=== PATIENT | male | born 1985 | race African-American/Black ===

== ENCOUNTER 2017-07-03 19:25 | Emergency (ER) | payer SELFPAY ==
--- NOTE | 2017-07-03 19:39 | ER Document Report ---
ED Syncope and Near Syncope - General Mode of Arrival: Ambulatory Information source: Patient TRAVEL OUTSIDE OF THE [place] IN LAST 30 DAYS: No <FOUZIA COLLINS - Last Filed: 07/03/17 22:59> <YUMIKO RHOADES - Last Filed: 07/04/17 04:59> - General Stated Complaint: POSSIBLE SYNCOPE Time Seen by Provider: 07/03/17 19:34 Notes: Patient is a 31 year old male that presents to the emergency department today with complaints of a syncopal episode that occurred just prior to arrival. Patient states that he was walking in the store and that is the last thing he remembers. Patient has a laceration to his forehead. Patient states he last got a tetanus shot in 2014. Patient has had diarrhea recently and thinks he could be dehydrated. Patient denies any syncopal episodes in the past. (FOUZIA COLLINS) - Related Data Allergies/Adverse Reactions: seafood Allergy (Uncoded 05/18/14 23:56) Past Medical History - General Information source: Patient - Social History Smoking Status: Never Smoker Cigarette use (# per day): No Frequency of alcohol use: Social Drug Abuse: None Lives with: Family Family History: Reviewed & Not Pertinent - Medical History Medical History: Negative Surgical Hx: Negative - Immunizations Hx Diphtheria, Pertussis, Tetanus Vaccination: Yes <FOUZIA COLLINS - Last Filed: 07/03/17 22:59> Review of Systems - Review of Systems Constitutional: No symptoms reported EENT: See HPI, Other - head laceration Cardiovascular: See HPI, Syncope Respiratory: No symptoms reported Gastrointestinal: No symptoms reported Genitourinary: No symptoms reported Male Genitourinary: No symptoms reported Musculoskeletal: No symptoms reported Skin: No symptoms reported Hematologic/Lymphatic: No symptoms reported Neurological/Psychological: See HPI, Headaches -: Yes All other systems reviewed and negative <FOUZIA COLLINS - Last Filed: 07/03/17 22:59> Physical Exam <FOUZIA COLLINS - Last Filed: 07/03/17 22:59> <YUMIKO RHOADES - Last Filed: 07/04/17 04:59> - Vital signs Vitals: Pulse Ox 100 07/03/17 19:43 - Notes Notes: Physical Exam: General: Alert, appears well. HEENT: Normocephalic. Hematoma over right forehead with 1 cm central laceration , bleeding controlled. PERRL. Extraocular movements intact. Oropharynx clear. Neck: Supple. Non-tender. Respiratory: No respiratory distress. Clear and equal breath sounds bilaterally. Cardiovascular: Regular rate and rhythm. Abdominal: Normal Inspection. Non-tender. No distension. Normal Bowel Sounds. Back: Non-tender. No deformity or step off. Extremities: Moves all four extremities. Upper extremities: Normal inspection. Normal ROM. Lower extremities: Normal inspection. No edema. Normal ROM. Neurological: Normal cognition. AAOx4. Normal speech. Psychological: Normal affect. Normal Mood. Skin: Warm. Dry. Normal color. (FOUZIA COLLINS) Course - Laboratory Result Diagrams: 07/03/17 19:45 07/03/17 19:45 <FOUZIA COLLINS - Last Filed: 07/03/17 22:59> - Laboratory Result Diagrams: 07/03/17 19:45 07/03/17 19:45 - Diagnostic Test Radiology reviewed: Reports reviewed <YUMIKO RHOADES - Last Filed: 07/04/17 04:59> - Re-evaluation Re-evalutation: 07/03/17 21:55 Pt still complaining of headache (FOUZIA COLLINS) Patient is a 31-year-old male who had an episode of syncope and hit his head. He is a very small laceration and did not want repair with sutures. Imaging with no acute findings. Blood work with no acute findings. Patient states that he has had a lot of diarrhea lately. Feels better after fluids. He is not orthostatic. He feels well and would like to go home. No acute findings on EKG. Patient is instructed to return immediately if he has any further episodes of syncope or has any other concerns. Family present for discussion. Stable for discharge. Understands and agrees with plan. Grateful for care. (YUMIKO RHOADES) - Vital Signs Vital signs: Temp Pulse Resp BP Pulse Ox 97.8 F 66 17 116/72 97 07/03/17 19:59 07/03/17 19:59 07/03/17 23:51 07/03/17 23:51 07/03/17 23:31 - Laboratory Laboratory results interpreted by me: 07/03/17 07/03/17 19:45 19:45 RBC 4.17 L Glucose 114 H ALT 18 L Total Protein 8.4 H Procedures - Laceration/Wound Repair Right Face Wound length (cm): 1 Wound's Depth, Shape: Superficial, Linear Irrigated w/ Saline (mLs): 500 Wound Repaired With: Steri-strips, Dermabond Layer Closure?: No Post-procedure NV exam normal: Yes Complications: No <YUMIKO RHOADES - Last Filed: 07/04/17 04:59> Discharge <FOUZIA COLLINS - Last Filed: 07/03/17 22:59> <YUMIKO RHOADES - Last Filed: 07/04/17 04:59> - Discharge Clinical Impression: Laceration Syncope Qualifiers: Syncope type: unspecified Qualified Code(s): R55 - Syncope and collapse Head injury Qualifiers: Encounter type: initial encounter Qualified Code(s): S09.90XA - Unspecified injury of head, initial encounter Cervical strain, acute Qualifiers: Encounter type: initial encounter Qualified Code(s): S16.1XXA - Strain of muscle, fascia and tendon at neck level, initial encounter Condition: Stable Disposition: HOME, SELF-CARE Instructions: Head Injury Precautions ([facility]), Neck Injury (Cervical Strain) ([facility] ), Syncopal Episode ([facility]) Prescriptions: Ondansetron [Zofran Odt 4 mg Tablet] 1 tab PO Q6HP PRN #15 tab.rapdis PRN Reason: For Nausea/Vomiting Metoclopramide HCl [Reglan 10 mg Tablet] 1 tab PO TIDP PRN #25 tablet PRN Reason: Forms: Return to Work Scribe Attestation: 07/04/17 04:59 I personally performed the services described in the documentation, reviewed and edited the documentation which was dictated to the scribe in my presence, and it accurately records my words and actions. (YUMIKO RHOADES) Scribe Documentation - Scribe Written by Borisibe:: Albert Acevedo, 07/03/2017 [id number] acting as scribe for :: Avelino <FOUZIA COLLINS - Last Filed: 07/03/17 22:59>
[2017-07-03] MEDS ORDERED: NORMAL SALINE 1000 ML 1,000 ML IV ONE (19:43)
[2017-07-03 19:58] LABS: ABSOLUTE EOSINOPHILS # (AUTO) 0.2 10^3/uL (0.0-0.6); ABSOLUTE LYMPHOCYTES (AUTO) 2.5 10^3/uL (0.5-4.7); ABSOLUTE MONOCYTES (AUTO) 0.7 10^3/uL (0.1-1.4); ABSOLUTE NEUT (AUTO) 5.9 10^3/uL (1.7-8.2); BASOPHILS % (AUTO) 0.5 % (0-2); EOSINOPHILS % (AUTO) 1.7 % (0-6); HEMATOCRIT 40.1 % (37.9-51.0); HEMOGLOBIN 13.7 g/dL (13.5-17.0); LYMPHOCYTES % (AUTO) 27.4 % (13-45); MEAN CORPUSCULAR HEMOGLOBIN 32.9 pg (27.0-33.4); MEAN CORPUSCULAR HGB CONC 34.2 g/dL (32.0-36.0); MEAN CORPUSCULAR VOLUME 96 fl (80-97); MONOCYTES % (AUTO) 7.3 % (3-13); PLATELET COUNT 266 10^3/uL (150-450); RED BLOOD COUNT 4.17 10^6/uL (4.35-5.55); RED CELL DISTRIBUTION WIDTH 13.6 % (11.5-14.0); SEGMENTED NEUTROPHILS % (AUTO) 63.1 % (42-78); TOTAL CELLS COUNTED % (AUTO) 100 %; WHITE BLOOD COUNT 9.3 10^3/uL (4.0-10.5)
[2017-07-03 20:05] LABS: INTERNATIONAL RATION (INR) 0.96; PROTHROMBIN TIME 13.5 SEC (11.4-15.4)
--- NOTE | 2017-07-03 20:05 | RADIOLOGY REPORT (SQ) ---
EXAM DESCRIPTION: CHEST SINGLE VIEW COMPLETED DATE/TIME: 07/03/2017 7:57 pm REASON FOR STUDY: syncope COMPARISON: None. EXAM PARAMETERS: NUMBER OF VIEWS: One view. TECHNIQUE: Single frontal radiographic view of the chest acquired. RADIATION DOSE: NA LIMITATIONS: None. FINDINGS: LUNGS AND PLEURA: No opacities, masses or pneumothorax. No pleural effusion. MEDIASTINUM AND HILAR STRUCTURES: No masses. Contour normal. HEART AND VASCULAR STRUCTURES: Heart normal in size. Normal vasculature. BONES: No acute findings. HARDWARE: None in the chest. OTHER: No other significant finding. IMPRESSION: NO ACUTE RADIOGRAPHIC FINDING IN THE CHEST. TECHNICAL DOCUMENTATION: JOB ID: [id number] [employer]- All Rights Reserved
[2017-07-03 20:15] LABS: ALANINE AMINOTRANSFERASE 18 U/L (21-72); ALBUMIN 4.9 g/dL (3.5-5.0); ALKALINE PHOSPHATASE 112 U/L (38-126); ANION GAP 12 (5-19); ASPARTATE AMINO TRANSFERASE 28 U/L (17-59); BILIRUBIN,DIRECT 0.1 mg/dL (0.0-0.4); BILIRUBIN,TOTAL 0.8 mg/dL (0.2-1.3); BLOOD UREA NITROGEN 12 mg/dL (7-20); CALCIUM 10.1 mg/dL (8.4-10.2); CARBON DIOXIDE 29 mmol/L (22-30); CHLORIDE 100 mmol/L (98-107); CREATINE KINASE 161 U/L (55-170); GLUCOSE 114 mg/dL (75-110); POTASSIUM 3.8 mmol/L (3.6-5.0); SODIUM 140.9 mmol/L (137-145); TOTAL PROTEIN 8.4 g/dL (6.3-8.2)
[2017-07-03 20:29] LABS: CREATINE KINASE MB < 0.22 ng/mL (<4.55); TROPONIN I < 0.012 ng/mL
[2017-07-03] MEDS ORDERED: ACETAMINOPHEN 325 MG TABLET PO ONE (20:41)
[2017-07-03] MEDS ORDERED: ONDANSETRON HCL INJ/PF 4 MG/2 ML SDV IV ONE (20:41)
--- NOTE | 2017-07-03 21:25 | RADIOLOGY REPORT (SQ) ---
EXAM DESCRIPTION: CT HEAD WITHOUT COMPLETED DATE/TIME: 07/03/2017 9:15 pm REASON FOR STUDY: fall, head injury, NERI COMPARISON: None. TECHNIQUE: Axial images acquired through the brain without intravenous contrast. Images reviewed wi th bone, brain and subdural windows. Images stored on PACS. All CT scanners at this facility use dose modulation, iterative reconstruction, and/or weight based d osing when appropriate to reduce radiation dose to as low as reasonably achievable (ALARA). [facility]: Dose Right [facility]: CareDose [facility]: Dose Right [facility]: Teradose 4D [facility]: Smart [employer] RADIATION DOSE: CT Rad equipment meets quality standard of care and radiation dose reduction techniq ues were employed. CTDIvol: 64.6 mGy. DLP: 1163 mGy-cm. mGy. LIMITATIONS: None. FINDINGS: VENTRICLES: Normal size and contour. CEREBRUM: No masses. No hemorrhage. No midline shift. No evidence for acute infarction. Normal gra y/white matter differentiation. No areas of low density in the white matter. CEREBELLUM: No masses. No hemorrhage. No alteration of density. No evidence for acute infarction. EXTRAAXIAL SPACES: No fluid collections. No masses. ORBITS AND GLOBE: No intra- or extraconal masses. Normal contour of globe without masses. CALVARIUM: No fracture. PARANASAL SINUSES: No fluid or mucosal thickening. SOFT TISSUES: Soft tissue swelling right side of the forehead. OTHER: No other significant finding. IMPRESSION: NORMAL BRAIN CT WITHOUT CONTRAST. EVIDENCE OF ACUTE STROKE: NO. COMMENT: Quality ID # [id number]: Final reports with documentation of one or more dose reduction techniques (e.g., Automated exposure control, adjustment of the mA and/or kV according to patient size, use of iterative reconstruction technique) TECHNICAL DOCUMENTATION: JOB ID: [id number]- All Rights Reserved
[2017-07-03] MEDS ORDERED: LIDOCAINE 1% INJ-PF (10 MG/ML) 30 ML SDV INJ ONE (21:47)
[2017-07-03] MEDS ORDERED: PROCHLORPERAZINE EDISYLATE INJ 10 MG/2 ML VIAL IV ONE (21:52)
[2017-07-03] MEDS ORDERED: DIPHENHYDRAMINE HCL 50 MG/ML VIAL IV ONE (21:52)
[2017-07-03] MEDS ORDERED: ONDANSETRON ODT 4 MG TAB (6 TAB/ER DISP) PO PRN (23:37)
[2017-07-03 23:53] VITALS: BP 116/72
--- NOTE | 2017-07-04 08:00 | EKG REPORT ---
SEVERITY:- NORMAL ECG - SINUS RHYTHM : Confirmed by: Pedro Moore MD 04-Jul-2017 07:59:46
== END 2017-07-04 00:07 | disposition home or self-care (01) ==
LOC: ER 19:25
PROC: 0HQ1XZZ Repair Face Skin, External Approach (ICD-10-PCS; principal; 2017-07-03)
DX: S16.1XXA Strain of muscle, fascia and tendon at neck level, initial encounter (principal); S09.90XA Unspecified injury of head, initial encounter; S01.81XA Laceration without foreign body of other part of head, initial encounter; R55 Syncope and collapse; R19.7 Diarrhea, unspecified; W19.XXXA Unspecified fall, initial encounter
CPT/HCPCS: 93005; 99285; 96361; 96374; 96375; 36415; 82553; 82550; 85025; 85610; 80053; 84484; 71045; 70450; 93010; 12011; J1200; J3490; J0780; J2405; J7030

== ENCOUNTER 2017-11-04 15:13 | Emergency (ER) | payer SELFPAY ==
[2017-11-04] MEDS ORDERED: NORMAL SALINE 1000 ML 1,000 ML IV ONE ×2 (15:27→19:36)
[2017-11-04] MEDS ORDERED: ONDANSETRON 4 MG TAB.RAPDIS PO ONE (15:28)
--- NOTE | 2017-11-04 15:35 | ER Document Report ---
ED Medical Screen (RME) - General Chief Complaint: Near Syncope Stated Complaint: SYNCOPE Time Seen by Provider: 11/04/17 15:21 Notes: RAPID MEDICAL EVALUATION DISCLOSURE I have seen this patient as part of a Rapid Medical Evaluation and, if applicable, placed any initially appropriate orders. The patient will be seen and fully evaluated, including a full history and physical exam, by a provider ( in Main ED or Fast Track) when a room becomes available. 31M here w c/o lightheadedness nausea diaphoresis CPs that started several hours ago while he was at work. States he went to [employer] to eat something but the symptoms did not improve. He has been drinking plenty of fluids. He has been urinating per usual. He has not had any recent medication changes. This has happened 3 times now and he has not yet seen a doctor about this. EXAM CTAB RRR TRAVEL OUTSIDE OF THE [place] IN LAST 30 DAYS: No - Related Data Allergies/Adverse Reactions: seafood Allergy (Uncoded 05/18/14 23:56) Past Medical History - Social History Chew tobacco use (# tins/day): No Frequency of alcohol use: None Drug Abuse: None Renal/ Medical History: Denies: Hx Peritoneal Dialysis - Immunizations Hx Diphtheria, Pertussis, Tetanus Vaccination: Yes Physical Exam - Vital signs Vitals: Temp Pulse Resp BP Pulse Ox 97.9 F 81 18 123/79 100 11/04/17 15:19 11/04/17 15:19 11/04/17 15:19 11/04/17 15:19 11/04/17 15:19 Course - Vital Signs Vital signs: Temp Pulse Resp BP Pulse Ox 97.9 F 81 18 123/79 100 11/04/17 15:19 11/04/17 15:19 11/04/17 15:19 11/04/17 15:19 11/04/17 15:19
[2017-11-04 15:54] LABS: ABSOLUTE LYMPHOCYTES (AUTO) 1.6 10^3/uL (0.5-4.7); ABSOLUTE MONOCYTES (AUTO) 0.4 10^3/uL (0.1-1.4); ABSOLUTE NEUT (AUTO) 5.8 10^3/uL (1.7-8.2); BASOPHILS % (AUTO) 0.3 % (0-2); EOSINOPHILS % (AUTO) 0.4 % (0-6); HEMATOCRIT 40.8 % (37.9-51.0); HEMOGLOBIN 14.1 g/dL (13.5-17.0); LYMPHOCYTES % (AUTO) 20.6 % (13-45); MEAN CORPUSCULAR HEMOGLOBIN 32.7 pg (27.0-33.4); MEAN CORPUSCULAR HGB CONC 34.6 g/dL (32.0-36.0); MEAN CORPUSCULAR VOLUME 95 fl (80-97); MONOCYTES % (AUTO) 4.7 % (3-13); PLATELET COUNT 267 10^3/uL (150-450); RED BLOOD COUNT 4.31 10^6/uL (4.35-5.55); RED CELL DISTRIBUTION WIDTH 13.5 % (11.5-14.0); TOTAL CELLS COUNTED % (AUTO) 100 %; WHITE BLOOD COUNT 7.8 10^3/uL (4.0-10.5)
[2017-11-04 16:16] LABS: ALANINE AMINOTRANSFERASE 31 U/L (21-72); ALBUMIN 4.3 g/dL (3.5-5.0); ALKALINE PHOSPHATASE 113 U/L (38-126); ANION GAP 9 (5-19); ASPARTATE AMINO TRANSFERASE 37 U/L (17-59); BILIRUBIN,DIRECT 0.3 mg/dL (0.0-0.4); BILIRUBIN,TOTAL 0.3 mg/dL (0.2-1.3); BLOOD UREA NITROGEN 11 mg/dL (7-20); CALCIUM 10.1 mg/dL (8.4-10.2); CARBON DIOXIDE 28 mmol/L (22-30); CHLORIDE 104 mmol/L (98-107); GLUCOSE 94 mg/dL (75-110); PHOSPHORUS 2.7 mg/dL (2.5-4.5); POTASSIUM 4.1 mmol/L (3.6-5.0); SODIUM 141.3 mmol/L (137-145); TOTAL PROTEIN 7.3 g/dL (6.3-8.2)
--- NOTE | 2017-11-04 16:18 | RADIOLOGY REPORT (SQ) ---
EXAM DESCRIPTION: CHEST 2 VIEWS COMPLETED DATE/TIME: 11/04/2017 4:08 pm REASON FOR STUDY: CP lightheaded COMPARISON: 07/03/2017. EXAM PARAMETERS: NUMBER OF VIEWS: two views TECHNIQUE: Digital Frontal and Lateral radiographic views of the chest acquired. RADIATION DOSE: NA LIMITATIONS: none FINDINGS: LUNGS AND PLEURA: No opacities, masses or pneumothorax. No pleural effusion. MEDIASTINUM AND HILAR STRUCTURES: No masses or contour abnormalities. HEART AND VASCULAR STRUCTURES: Heart normal size. No evidence for failure. BONES: No acute findings. HARDWARE: None in the chest. OTHER: No other significant finding. IMPRESSION: NO ACUTE RADIOGRAPHIC FINDING IN THE CHEST. TECHNICAL DOCUMENTATION: JOB ID: [id number] [employer]- All Rights Reserved Reading location - IP/workstation name: [email or web address]
[2017-11-04 17:15] LABS: URINE AMPHETAMINES SCREEN NEGATIVE; URINE BARBITURATES SCREEN NEGATIVE; URINE BENZODIAZEPINES SCREEN NEGATIVE; URINE COCAINE SCREEN NEGATIVE; URINE MARIJUANA (THC) SCREEN UNCONFIRMED POSITIVE; URINE METHADONE SCREEN NEGATIVE; URINE PHENCYCLIDINE SCREEN NEGATIVE
--- NOTE | 2017-11-04 18:53 | ER Document Report ---
ED General - General Mode of Arrival: Ambulatory Information source: Patient TRAVEL OUTSIDE OF THE [place] IN LAST 30 DAYS: No <SYLVIA BARROSO - Last Filed: 11/04/17 22:09> <YUMIKO RHOADES - Last Filed: 11/05/17 02:58> - General Chief Complaint: Near Syncope Stated Complaint: SYNCOPE Time Seen by Provider: 11/04/17 15:21 Notes: 31 y.o male presents to the ED for near syncopal episode. Pt has been seen here in the past for the same sx when he did lose consciousness and hit the front of his head. Pt denies loss of consciousness today but states that he had the same pre-syncopal symptoms where he got lightheaded, CP, heart racing and diaphoretic. He states that he has been experiencing this 3-4 times a month and although he is feeling better since receiving fluids he does not think this is only due to dehydration for he states that he regularly drinks plenty of fluids throughout the day. Pt does not have a PCP. (SYLVIA BARROSO) - Related Data Allergies/Adverse Reactions: seafood Allergy (Uncoded 05/18/14 23:56) Past Medical History - General Information source: Patient - Social History Smoking Status: Never Smoker Chew tobacco use (# tins/day): No Frequency of alcohol use: None Drug Abuse: None Family History: Reviewed & Not Pertinent Patient has suicidal ideation: No Patient has homicidal ideation: No Renal/ Medical History: Denies: Hx Peritoneal Dialysis - Immunizations Hx Diphtheria, Pertussis, Tetanus Vaccination: Yes <SYLVIA BARROSO - Last Filed: 11/04/17 22:09> Review of Systems - Review of Systems Constitutional: See HPI, Diaphoresis EENT: No symptoms reported Cardiovascular: See HPI, Chest pain, Heart racing, Lightheaded, Other - near syncope Respiratory: No symptoms reported Gastrointestinal: No symptoms reported Genitourinary: No symptoms reported Male Genitourinary: No symptoms reported Musculoskeletal: No symptoms reported Skin: No symptoms reported Hematologic/Lymphatic: No symptoms reported Neurological/Psychological: No symptoms reported -: Yes All other systems reviewed and negative <SYLVIA BARROSO - Last Filed: 11/04/17 22:09> Physical Exam <SYLVIA BARROSO - Last Filed: 11/04/17 22:09> <YUMIKO RHOADES - Last Filed: 11/05/17 02:58> - Vital signs Vitals: Temp Pulse Resp BP Pulse Ox 97.9 F 81 18 123/79 100 11/04/17 15:19 11/04/17 15:19 11/04/17 15:19 11/04/17 15:19 11/04/17 15:19 - Notes Notes: Physical Exam: General: Alert, appears well. HEENT: Normocephalic. Atraumatic. PERRL. Extraocular movements intact. Oropharynx clear. Neck: Supple. Non-tender. Respiratory: No respiratory distress. Clear and equal breath sounds bilaterally. Cardiovascular: Regular rate and rhythm. Abdominal: Normal Inspection. Non-tender. No distension. Normal Bowel Sounds. Back: Non-tender. No deformity or step off. Extremities: Moves all four extremities. Upper extremities: Normal inspection. Normal ROM. Lower extremities: Normal inspection. No edema. Normal ROM. Neurological: Normal cognition. AAOx3. Normal speech. Psychological: Normal affect. Normal Mood. Skin: Warm. Dry. Normal color. (SYLVIA BARROSO) Course - Laboratory Result Diagrams: 11/04/17 15:41 11/04/17 15:41 <SYLVIA BARROSO - Last Filed: 11/04/17 22:09> - Laboratory Result Diagrams: 11/04/17 15:41 11/04/17 15:41 - Diagnostic Test Radiology reviewed: Reports reviewed <YUMIKO RHOADES - Last Filed: 11/05/17 02:58> - Re-evaluation Re-evalutation: 11/04/17 19:[address] Engle concerning patient. 11/04/17 21:32 Dr. Engle called back, he informed me that the Echo was normal. Pt can follow up with Dr. Engle tomorrow. (SYLVIA BARROSO) Patient is a 31-year-old male who has had episodes of syncope and presyncope over the last few months. No acute findings on EKG or echocardiogram. Patient appears well with stable vitals and blood work. Discussed with Dr. Engle who will see the patient in the office tomorrow. Patient and family are agreeable to this plan. Stable for discharge. Return if any worsening or concerning symptoms. (YUMIKO RHOADES) - Vital Signs Vital signs: Temp Pulse Resp BP Pulse Ox 97.9 F 56 L 18 124/78 97 11/04/17 15:19 11/04/17 22:00 11/04/17 22:00 11/04/17 22:00 11/04/17 22:00 - Laboratory Laboratory results interpreted by me: 11/04/17 15:41 RBC 4.31 L Discharge <SYLVIA BARROSO - Last Filed: 11/04/17 22:09> <YUMIKO RHOADES - Last Filed: 11/05/17 02:58> - Discharge Clinical Impression: Syncope Qualifiers: Syncope type: unspecified Qualified Code(s): R55 - Syncope and collapse Condition: Stable Disposition: HOME, SELF-CARE Instructions: Syncopal Episode ([facility]) Forms: Return to Work Referrals: PENNY ENGLE MD [ACTIVE STAFF] - Follow up tomorrow Scribe Attestation: 11/05/17 02:58 I personally performed the services described in the documentation, reviewed and edited the documentation which was dictated to the scribe in my presence, and it accurately records my words and actions. (YUMIKO RHOADES) Scribe Documentation - Scribe Written by Albert:: Albert Turk 11/04/17 [id number] acting as scribe for :: Avelino <SYLVIA BARROSO - Last Filed: 11/04/17 22:09>
--- NOTE | 2017-11-04 21:53 | XCELERA REPORT ---
[address] [address] Transthoracic Echocardiogram Report Name: GADIEL PIKE Age: 31 yrs Gender: Male : 1985 Patient Status: Emergency Patient Location: ER Study Date: 11/04/2017 08:27 PM Height: 69 in Weight: 176 lb BSA: 2.0 m2 Procedure: A complete two-dimensional transthoracic echocardiogram was performed (2D, M-mode, spectral and color flow Doppler). The study was technically adequate with some images being suboptimal in quality. Reason For Study: syncope, evaluate for valve/ventricle abnormality Ordering Physician: YUMIKO RHOADES Performed By: Mckayla Pak Interpretation Summary The left ventricular ejection fraction is normal. There is borderline concentric left ventricular hypertrophy. The left ventricle is grossly normal size. Doppler measurements suggest normal left ventricular diastolic function No regional wall motion abnormalities noted. The right ventricular systolic function is normal. The left atrial size is normal. The right atrium is normal. There is no mitral valve stenosis. There is a trace amount of mitral regurgitation There is no aortic valve stenosis No aortic regurgitation is present. There is no tricuspid stenosis. There is a trace or physiologic amount of tricuspid regurgitation Tricuspid regurgitation jet envelope not well defined to measure RV systolic pressure accurately. The aortic root is not well visualized but is probably normal size. The inferior vena cava appeared normal and decreased > 50% with respiration (RAP 5-10 mmHg) There is no pericardial effusion. MMode/2D Measurements & Calculations RVDd: 2.4 cm LVIDd: 4.5 cm FS: 41.3 % Ao root diam: 2.4 cm IVSd: 0.97 cm LVIDs: 2.6 cm EDV(Teich): 90.1 ml LVPWd: 0.96 cm ESV(Teich): 24.9 ml Ao root area: 4.7 cm2 EF(Teich): 72.4 % LA dimension: 2.8 cm Doppler Measurements & Calculations MV E max lalo: MV P1/2t max lalo: Ao V2 max: LV V1 max P.2 cm/sec 95.2 cm/sec 156.4 cm/sec 5.6 mmHg MV A max lalo: MV P1/2t: 68.4 msec Ao max PG: LV V1 max: 52.6 cm/sec 9.8 mmHg 118.0 cm/sec MV E/A: 1.8 MVA(P1/2t): 3.2 cm2 MV dec slope: 407.6 cm/sec2 MV dec time: 0.23 sec PA V2 max: PI end-d lalo: TR max lalo: 88.8 cm/sec 108.6 cm/sec 271.5 cm/sec PA max PG: TR max P.2 mmHg 29.5 mmHg Left Ventricle The left ventricle is grossly normal size. There is borderline concentric left ventricular hypertrophy. The left ventricular ejection fraction is normal. Doppler measurements suggest normal left ventricular diastolic function. No regional wall motion abnormalities noted. Right Ventricle The right ventricle is grossly normal size. There is normal right ventricular wall thickness. The right ventricular systolic function is normal. Atria The right atrium is normal. The left atrial size is normal. Interarterial septum not well visualized and not well dopplered. Cannot comment on ASD/PFO presence. Mitral Valve The mitral valve is grossly normal. There is no mitral valve stenosis. There is a trace amount of mitral regurgitation. Aortic Valve The aortic valve is grossly normal. There is no aortic valve stenosis. No aortic regurgitation is present. Tricuspid Valve The tricuspid valve is not well visualized, but is grossly normal. There is no tricuspid stenosis. There is a trace or physiologic amount of tricuspid regurgitation. Tricuspid regurgitation jet envelope not well defined to measure RV systolic pressure accurately. Pulmonic Valve The pulmonic valve is not well visualized. Great Vessels The aortic root is not well visualized but is probably normal size. The inferior vena cava appeared normal and decreased > 50% with respiration (RAP 5-10 mmHg). Effusions There is no pericardial effusion. : YUMIKO RHOADES > Sherie Engle
--- NOTE | 2017-11-04 22:09 | EKG REPORT ---
SEVERITY:- NORMAL ECG - SINUS RHYTHM : Confirmed by: Whitney Sanders MD 04-Nov-2017 22:09:09
[2017-11-04 22:42] VITALS: BP 124/78
== END 2017-11-04 22:20 | disposition home or self-care (01) ==
LOC: ER 15:13
DX: R55 Syncope and collapse (principal); R07.9 Chest pain, unspecified; R61 Generalized hyperhidrosis; Z91.013 Allergy to seafood
CPT/HCPCS: 93005; 99285; 96360; 96361; 36415; 82550; 83735; 84100; 85025; 80053; 84484; 80307; 93306; 71046; 93010; S0119; J7030